=== PATIENT | female | born 1945 | race Asian ===

== ENCOUNTER 2022-09-08 14:46 | Outpatient (CLI) | payer MEDICARE, OTHER | END 2022-09-08 14:47 | disposition critical access hospital (66) | LOC: EMS 14:46 | DX: R41.0 Disorientation, unspecified (principal); R63.8 Other symptoms and signs concerning food and fluid intake; R53.1 Weakness | CPT/HCPCS: A0425; A0429 ==

== ENCOUNTER 2022-09-08 15:09 | Emergency (ER) | payer MEDICARE, OTHER ==
--- NOTE | 2022-09-08 15:27 | ED Physician Documentation ---
PD HPI ALTERED MENTAL STATUS - Stated complaint Stated Complaint: AMS - History obtained from History obtained from: Patient, EMS - Additional information Additional information: 77-year-old woman with reportedly no medical history is brought in by ambulance for concerns about her safety. Reportedly lives alone. She says that she is in [place] currently, she states that her is alive and in [facility]. She has trouble elucidating why they are apart. She has no specific complaints. Per Gee Grandson, 2001. She has two daughters, one in [place], one . He last saw her 1-2 months ago, normal mentally then. He saw her yesterday and she appeared confused. He states that she does have a history of alcohol use so presume she might of been drunk or hung over. Then could not get a hold of her today so went back over and she was still confused so called the ambulance. Review of Systems Unable to obtain: Confused, Dementia PD PAST MEDICAL HISTORY - Allergies Allergies/Adverse Reactions: Allergies Allergy/AdvReac Type Severity Reaction Status Date / Time No Known Drug Allergies Allergy Verified 09/08/22 15:19 PD ED PE NORMAL - Vitals Vital signs reviewed: Yes - General General: Other (She is alert and oriented to person only, not place, time, or events. She is disheveled with unkempt fingernails) - HEENT HEENT: PERRL, EOMI - Neck Neck: Supple, no meningeal sign, No bony TTP - Cardiac Cardiac: RRR, No murmur - Respiratory Respiratory: No respiratory distress, Clear bilaterally - Abdomen Abdomen: Normal bowel sounds, Soft, Non tender - Back Back: No CVA TTP, No spinal TTP - Derm Derm: Normal color, Warm and dry - Extremities Extremities: No edema, No calf tenderness / cord - Neuro Eye Opening: Spontaneous Motor: Obeys Commands Verbal: Confused GCS Score: 14 Results - Vitals Vitals: Vital Signs - 24 hr 09/08/22 09/08/22 09/08/22 15:19 15:26 17:26 Temperature 36.8 C 36.8 C Heart Rate 98 98 88 Respiratory 18 18 16 Rate Blood Pressure 121/100 H 121/100 H 92/72 O2 Saturation 99 99 98 Oxygen O2 Source Room air - EKG (time done) 1531 Rate: Rate (enter#) (82) Rhythm: NSR (w pacs) [place]: LAD Intervals: Normal TN Ischemia: Non specific changes - Labs Labs: Laboratory Tests 09/08/22 09/08/22 09/08/22 15:28 15:35 15:35 WBC 7.2 RBC 4.34 Hgb 15.4 Hct 43.6 MCV 100.5 H MCH 35.5 H MCHC 35.3 RDW 11.9 L Plt Count 151 MPV 9.7 Neut # (Auto) 5.3 Lymph # (Auto) 0.8 L Tompkins # (Auto) 1.0 Eos # (Auto) 0.0 Baso # (Auto) 0.0 Absolute Nucleated RBC 0.00 Nucleated RBC % 0.0 Sodium 138 Potassium 2.8 L Chloride 94 L Carbon Dioxide 24 Anion Gap 20.0 H BUN 25 H Creatinine 0.8 Estimated GFR (MDRD) 70 L Glucose 140 H Calcium 10.0 Magnesium 1.8 Total Bilirubin 2.6 H AST 34 ALT 37 Alkaline Phosphatase 48 Total Protein 8.3 H Albumin 3.6 Globulin 4.7 H Albumin/Globulin Ratio 0.8 L Ethyl Alcohol < 5.0 SARS-CoV-2 (PCR) NOT DETECTED - Rads (name of study) CT Head- Age related volume loss and white matter and small vessel ischemic chgs, NAD Radiology: Final report received, EMP read indepedently PD Medical Decision Making - ED course ED course: 77-year-old woman presents with altered mental status, delusions of her being alive. Its been a few months since her grandson and seen her, so presume this is dementia the differential diagnosis would include severe hyponatremia, alcohol, less likely brain tumor. Lab work done and notable for macrocytosis without anemia, potassium of 2.8 repleted orally, mild elevation in BUN without elevation in creatinine and mild elevation in bilirubin, all of unclear chronicity. Head CT ordered and discussed with social work. Unclear at this time if this is medical versus just needing placement, more likely the latter related to dementia. At signout at the end of my shift on September 08 her medical work-up is stable with the exception of the hypokalemia repleted orally, will recheck in the morning. Urine is pending. Her daughter should be arriving from [place] tomorrow. Departure - Departure Clinical Impression: Confusion, Lives alone without help available Dementia Qualifiers: Dementia type: unspecified type Dementia severity: severe Dementia behavioral or psychological symptom: without behavioral, psychotic, or mood disturbance or anxiety Qualified Code(s): F03.C0 - Unspecified dementia, severe, without behavioral disturbance, psychotic disturbance, mood disturbance, and anxiety Condition: Stable
[2022-09-08 15:45] LABS: BASOPHILS % (AUTO) 0.6 %; EOSINOPHILS % (AUTO) 0.3 %; HCT - HEMATOCRIT 43.6 % (37.0-47.0); HGB - HEMOGLOBIN 15.4 g/dL (12.0-16.0); LYMPHOCYTES # (AUTO) 0.8 10^3/uL (1.5-3.5); LYMPHOCYTES % (AUTO) 11.5 %; MEAN CORPUSCULAR HEMOGLOBIN 35.5 pg (27.0-31.0); MEAN CORPUSCULAR HGB CONC 35.3 g/dL (32.0-36.0); MEAN CORPUSCULAR VOLUME 100.5 fL (81.0-99.0); MEAN PLATELET VOLUME 9.7 fL (7.9-10.8); MONOCYTES % (AUTO) 13.6 %; NEUTROPHILS # (AUTO) 5.3 10^3/uL (1.5-6.6); NEUTROPHILS % (AUTO) 73.7 %; PLT - PLATELET COUNT 151 10^3/uL (130-450); RED BLOOD COUNT 4.34 10^6/uL (4.20-5.40); RED CELL DISTRIBUTION WIDTH 11.9 % (12.0-15.0); WHITE BLOOD COUNT 7.2 x10^3/uL (4.8-10.8)
[2022-09-08 15:56] LABS: AST ASPARTATE AMINOTRANSFERASE 34 IU/L (10-42); BILIRUBIN,TOTAL 2.6 mg/dL (0.2-1.0); BUN - BLOOD UREA NITROGEN 25 mg/dL (6-20); CARBON DIOXIDE - CO2 24 mmol/L (21-32); CHLORIDE 94 mmol/L (101-111); CREATININE 0.8 mg/dL (0.4-1.0); GFR - MDRD 70 (>89); GLUCOSE 140 mg/dL (70-100); MAGNESIUM 1.8 mg/dL (1.7-2.8); POTASSIUM 2.8 mmol/L (3.5-5.0); SODIUM 138 mmol/L (135-145)
[2022-09-08 15:57] LABS: ALBUMIN 3.6 g/dL (3.2-5.5); ALBUMIN/GLOBULIN RATIO 0.8 (1.0-2.2); ALKALINE PHOSPHATASE 48 IU/L (42-121); ALT ALANINE AMINOTRANSFERASE 37 IU/L (10-60); ETOH - ETHANOL < 5.0 mg/dL; TOTAL PROTEIN 8.3 g/dL (6.7-8.2)
[2022-09-08] MEDS ORDERED: POTASSIUM CHLORIDE 20 MEQ TABLET PO STA (16:10)
[2022-09-08] MEDS ORDERED: THIAMINE 100 MG TABLET PO STA (16:11)
[2022-09-08] MEDS ORDERED: ACETAMINOPHEN 500 MG TABLET PO PRN (16:34)
[2022-09-08] MEDS ORDERED: ONDANSETRON 4 MG/2 ML VIAL IVP PRN (16:34)
--- NOTE | 2022-09-08 16:49 | CT Report ---
PROCEDURE: HEAD WO INDICATIONS: AMS TECHNIQUE: Noncontrast 4.5 mm thick angled axial sections acquired from the foramen magnum to the vertex. For r adiation dose reduction, the following was used: automated exposure control, adjustment of mA and/or kV according to patient size. COMPARISON: None. FINDINGS: Image quality: Excellent. CSF spaces: Basal cisterns are patent. No extra-axial fluid collections. The ventricles are symmet duke in size and shape. Brain: No intracranial bleeds or masses. There is cerebral volume loss for age, with resultant vent ricular and sulcal prominence. There are periventricular and deep white matter chronic small vessel ischemic changes. There is intracranial internal carotid artery atherosclerosis. Skull and face: Calvarium and visualized facial bones appear intact, without suspicious lesions. Sinuses: Visualized sinuses and mastoids are clear. IMPRESSION: 1. No CT evidence of acute intracranial abnormalities. 2. Age-related volume loss and moderate white matter chronic small vessel ischemic changes. Reviewed by: Bobby Marley MD on 09/08/2022 4:47 PM PST Approved by: Bobby Marley MD on 09/08/2022 4:47 PM PST Station ID: [id number]
[2022-09-08] MEDS ORDERED: POTASSIUM CHLORIDE 20 MEQ TABLET PO ONE (18:00)
[2022-09-08 18:26] LABS: MUDS CUTOFF CONCENTRATIONS CUTOFF CONC BELOW:
[2022-09-08 18:33] LABS: GLUCOSE, URINE (UA) NEGATIVE (NEGATIVE); KETONES,URINE (UA) 15 mg/dL (NEGATIVE); LEUKOCYTE ESTERASE, URINE TRACE (NEGATIVE); NITRITE,URINE POSITIVE (NEGATIVE); OCCULT BLOOD,URINE MODERATE (NEGATIVE); PH,URINE 5.5 PH (5.0-7.5); PROTEIN,URINE TRACE mg/dL (NEGATIVE); UROBILINOGEN,URINE 4 E.U./dL (NORMAL)
[2022-09-08 18:36] LABS: BILIRUBIN,URINE LARGE (NEGATIVE); CLARITY,URINE HAZY (CLEAR); ICTOTEST,URINE POSITIVE
[2022-09-08 18:45] LABS: AMPHETAMINE SCREEN,URINE NEGATIVE (NEGATIVE); BACTERIA,URINE Few /HPF (None Seen); BARBITURATE SCREEN,UR NEGATIVE (NEGATIVE); BENZODIAZEPINES SCREEN, URINE NEGATIVE (NEGATIVE); COCAINE SCREEN URINE NEGATIVE (NEGATIVE); METHADONE SCREEN, URINE NEGATIVE (NEGATIVE); METHAMPHETAMINES SCREEN, URINE NEGATIVE (NEGATIVE); MUCUS,URINE Few Strands; OPIATE SCREEN, URINE NEGATIVE (NEGATIVE); OXYCODONE SCREEN, URINE NEGATIVE (NEGATIVE); PROPOXYPHENE SCREEN, URINE NEGATIVE (NEGATIVE); SQUAMOUS EPITHELIAL CELL,UR MOD Squamous (<= Few); THC CANNABINOID SCREEN, URINE NEGATIVE (NEGATIVE); TRICYCLIC ANTIDEPRESSANT,URINE NEGATIVE (NEGATIVE)
[2022-09-08] MEDS ORDERED: cefTRIAXone 1 GM VIAL IM STA (19:19)
[2022-09-08] MEDS ORDERED: LIDOCAINE 1% 2 ML VIAL MC ONE (19:19)
[2022-09-09 05:28] LABS: BASOPHILS % (AUTO) 0.2 %; HCT - HEMATOCRIT 43.2 % (37.0-47.0); HGB - HEMOGLOBIN 15.1 g/dL (12.0-16.0); LYMPHOCYTES # (AUTO) 0.8 10^3/uL (1.5-3.5); LYMPHOCYTES % (AUTO) 6.9 %; MEAN CORPUSCULAR VOLUME 100.2 fL (81.0-99.0); MEAN PLATELET VOLUME 9.6 fL (7.9-10.8); MONOCYTES # (AUTO) 1.4 10^3/uL (0.0-1.0); MONOCYTES % (AUTO) 12.6 %; NEUTROPHILS # (AUTO) 9.2 10^3/uL (1.5-6.6); PLT - PLATELET COUNT 141 10^3/uL (130-450); RED BLOOD COUNT 4.31 10^6/uL (4.20-5.40); RED CELL DISTRIBUTION WIDTH 11.7 % (12.0-15.0); WHITE BLOOD COUNT 11.5 x10^3/uL (4.8-10.8)
[2022-09-09 05:35] LABS: CALCIUM 10.3 mg/dL (8.5-10.3); CREATININE 0.9 mg/dL (0.4-1.0); POTASSIUM 3.9 mmol/L (3.5-5.0)
[2022-09-09] MEDS ORDERED: PANTOPRAZOLE 40 MG TABLET PO SCH (07:00)
[2022-09-09] MEDS: NITROFURANTOIN MACRO 100 MG CAPSULE PO SCH ×2 (10:13→18:31)
--- NOTE | 2022-09-09 17:44 | ED Physician Documentation ---
ED Addendum - Addendum Addendum: 09/09/22 17:44 Daughter at the bedside and willing to take her home. I here she did last night so we will start some very low-dose at bedtime Seroquel. The question of a UTI came up, her urine was contaminated and certainly could be normal for age without urinary symptoms but out of an abundance of caution we will treat with antibiotics. Of note her mental status does seem somewhat better today, unlike yesterday she knows her is . Unfortunately she does not recognize her daughter.
[2022-09-09 18:34] VITALS: BP 96/59
== END 2022-09-09 18:33 | disposition home or self-care (01) ==
LOC: EDUNIT# → ED 15:09
DX: F03.C0 Unspecified dementia, severe, without behavioral disturbance, psychotic disturbance, mood disturbance, and anxiety (principal); E87.6 Hypokalemia; Z20.822 Contact with and (suspected) exposure to COVID-19
CPT/HCPCS: 36415; 51701; 70450; 80048; 80053; 80306; 81001; 83735; 85025; 87635; 93005; 96372; 99284; 99285; A9270; G0480; 80320; 81003; 87086